=== PATIENT | male | born 1995 | race Caucasian/White ===

== ENCOUNTER 2019-10-23 17:11 | Emergency (ER) | payer OTHER, SELFPAY ==
[2019-10-23 17:25] VITALS: BP 125/66; PULSE 98; RESP 20; TEMP 36.7; O2SAT 100; BMI 36.3
--- NOTE | 2019-10-23 17:29 | DI.RAD.S_ITS ---
PROCEDURE: XR CHEST 2V INDICATIONS: cough x1 month TECHNIQUE: 2 views of the chest were acquired. COMPARISON: None. FINDINGS: Surgical changes and devices: None. Lungs and pleura: Lungs are clear. No pleural effusions or pneumothorax. Mediastinum: Mediastinal contours are normal. Heart size is normal. Bones and chest wall: No suspicious bony abnormalities. Soft tissues appear unremarkable. IMPRESSION: No acute cardiopulmonary disease. Dictated by: Radha Cid M.D. on 10/23/2019 at 17:44 Approved by: Radha Cid M.D. on 10/23/2019 at 17:45
--- NOTE | 2019-10-23 19:26 | ED_ITS ---
HPI - URI/Sore Throat <JULIO Latham - Last Filed: 10/23/19 20:37> General Chief Complaint: Upper Respiratory Symptoms Stated Complaint: Thinks Bronchitis/Cough Time Seen by Provider: 10/23/19 18:44 Source: patient Mode of arrival: Ambulatory History of Present Illness HPI Narrative: 23-year-old male who is a current smoker, presents to the emergency department complaining of a cough for the past month. He states he originally started with an upper respiratory tract infection which slowly resolved but he continued to have a cough. Patient states over the past few days his cough has been becoming increasingly worse. He also reports increasing fatigue, increasing sputum production, and chills. Patient states he often coughs so hard that he vomits. He denies any abdominal pain, diarrhea, dizzines s, chest pain, exposure to known cases of COVID-19 or any other symptoms. Related Data Previous Rx's Medication Instructions Recorded albuterol sulfate [ProAir HFA] 2 puff INHALATION Q4-6H PRN #8.5 10/23/19 gram azithromycin See Rx Instructions .ROUTE 10/23/19 .COMPLEX #6 tab Allergies Allergy/AdvReac Type Severity Reaction Status Date / Time No Known Drug Allergies Allergy Verified 10/23/19 17:29 Review of Systems <JULIO Latham - Last Filed: 10/23/19 20:37> Review of Systems Narrative: REVIEW OF SYSTEMS: GENERAL: Reports chills, see HPI. HENT: No head trauma or hearing loss. EYES: No loss of vision, double vision, eye pain, irritation or discharge. CARDIOVASCULAR: No chest pain or syncope. RESPIRATORY: No shortness of breath. Complains of cough, see HPI. GASTROINTESTINAL: No nausea, vomiting, diarrhea, or constipation. MUSCULOSKELETAL: No weakness or injury. INTEGUMENTARY: No rash, lesions, or pruritus. NEURO: No memory loss, or confusion. Patient History <JULIO Latham - Last Filed: 10/23/19 20:37> Medical History No significant medical problems (Acute) Social History Smoking Status: Current every day smoker Smoking Status: Current every day smoker tobacco type: cigarettes alcohol intake frequency: holidays/special occasions only Substance Use Type: does not use Exam <JULIO Latham - Last Filed: 10/23/19 20:37> Initial Vital Signs Initial Vital Signs: Vital Signs Temperature 98.1 F 10/23/19 17:25 Pulse Rate 98 H 10/23/19 17:25 Respiratory Rate 20 10/23/19 17:25 Blood Pressure 125/66 10/23/19 17:25 Pulse Oximetry 100 10/23/19 17:25 PHYSICAL EXAMINATION: GENERAL: Well groomed, alert, and cooperative. Answers questions promptly and appropriately. Vital signs noted. HENT: Normocephalic, atraumatic. Ear canals patent. TMs intact without mucus or erythema. Oropharynx with slight erythema, Tonsils are not present. EYES: Conjunctiva pink, sclera white, no periorbital swelling. No discharge. CHEST: Normal to inspection and without deformities. CARDIOVASCULAR: S1 and S2 sounds normal. Regular rate and rhythm, no murmurs, clicks, or bruits. RESPIRATORY: Normal respiratory rate, trachea midline, airway patent. No stridor, nasal flaring or accessory muscle use. Able to speak in full sentences. Lungs with diffuse expiratory wheezes and scattered rhonchi, productive cough noted throughout examination. MUSCULOSKELETAL: Normal gait and coordination. Equal tone and mass bilaterally. EXTREMITIES: Moves all extremities. SKIN: Warm, dry, soft, appropriate color for ethnicity. No lesions, rashes, or wounds to visualized areas. NEURO: Alert and Oriented X 3. Good coordination. No ataxia or cognitive issues. PSYCH: Appropriate affect and mood. <Eitan Sow DO - Last Filed: 10/23/19 23:21> Initial Vital Signs Initial Vital Signs: Vital Signs Temperature 98.1 F 10/23/19 17:25 Pulse Rate 98 H 10/23/19 17:25 Respiratory Rate 20 10/23/19 17:25 Blood Pressure 125/66 10/23/19 17:25 Pulse Oximetry 100 10/23/19 17:25 Course <JULIO Latham - Last Filed: 10/23/19 20:37> Orders Ordered: ED Orders 10/23/19 17:29 Chest [XR chest 2V] Stat Vital Signs Vital signs: Vital Signs - 8 hr 10/23/19 17:25 10/23/19 19:33 Temperature 98.1 F 98.7 F Pulse Rate 98 H 100 H Respiratory Rate 20 20 Blood Pressure 125/66 133/81 Pulse Oximetry 100 98 <Eitan SowDO - Last Filed: 10/23/19 23:21> Orders Ordered: ED Orders 10/23/19 17:29 Chest [XR chest 2V] Stat Vital Signs Vital signs: Vital Signs - 8 hr 10/23/19 17:25 10/23/19 19:33 Temperature 98.1 F 98.7 F Pulse Rate 98 H 100 H Respiratory Rate 20 20 Blood Pressure 125/66 133/81 Pulse Oximetry 100 98 MDM - URI/Sore Throat <NicoleJULIO Romano - Last Filed: 10/23/19 20:37> Medical Records Attestation: I reviewed the patient's medical records. Lab Data Attestation: I reviewed the patient's lab results. Imaging Data Chest x-ray: Radiologist's Impression: [address] [address] XRay Report Signed Patient: Rajat Dupree [facility]#: [id number] : 1995Acct:[id number] Age/Sex: 23 / MDate of Service: 10/23/19 Loc: ED Accession Number: [id number] Procedure: XR chest 2V Ordering Provider: Cecilia Kent MD PROCEDURE: XR CHEST 2V INDICATIONS: cough x1 month TECHNIQUE: 2 views of the chest were acquired. COMPARISON: None. FINDINGS: Surgical changes and devices: None. Lungs and pleura: Lungs are clear. No pleural effusions or pneumothorax. Mediastinum: Mediastinal contours are normal. Heart size is normal. Bones and chest wall: No suspicious bony abnormalities. Soft tissues appear unremarkable. IMPRESSION: No acute cardiopulmonary disease. Dictated by: Radha Cid M.D. on 10/23/2019 at 17:44 Approved by: Radha Cid M.D. on 10/23/2019 at 17:45 [facility] Narrative Medical decision making narrative: 23-year-old smoker presented to the emergency department for prolonged cough for the past month which has increased over the past few days. Patient was wheezing on examination, chest x-ray negative for any signs of significant pneumonia. Due to prolonged duration of symptoms, rhonchi, and wheezes, I suspect patient has both a component of reactive airway disease/COPD and bronchitis verses atypical pneumonia. Increased suspicion for bacterial bronchitis versus viral due to 2nd sickening syndrome and symptoms have been ongoing for over a month. Patient was treated with azithromycin due to anti-inflammatory component that is often used in COPD exacerbations. He was also given an albuterol inhaler and was taught how to use a spacer. Patient was given strict follow-up instructions in the next 1-2 weeks for further evaluation with his primary care provider if symptoms continue. Return precautions given for severe symptoms such as shortness of breath or chest pain. I do not feel like patient meets criteria for COVID-19 testing due to lack of fevers, however patient was instructed to being contact with his primary care provider if other symptoms were to develop. Given in the community circumstances he was encouraged to stay home in self isolation 3 days after all symptoms have resolved. Discharge Plan Departure Patient Disposition: Home Clinical Impression: Bronchitis, Atypical pneumonia Reactive airway disease Qualifiers: Asthma severity: mild Asthma persistence: intermittent Asthma complication type: uncomplicated Qualified Code(s): J45.20 - Mild intermittent asthma, uncomplicated Discharge Date/Time: 10/23/19 19:33 Instructions: DI for Chronic Obstructive Pulmonary Disease, DI for Acute Bronchitis, DI for Atypical Pneumonia Activity Restrictions/Additional Instructions: Thank you for entrusting me with your care today. As discussed, your chest x-ray and influenza swab is negative. Due to your prolonged duration of symptoms in your lung exam, and concern for bacterial infection such as atypical pneumonia or bacterial bronchitis. I prescribed you an antibiotic, please take this as directed. You also have a reactive airway component which is causing wheezing and coughing, this is most likely due to smoking. I have given you inhaler, please use 1-2 puffs every 4-6 hours as needed for coughing spasms and wheezing. Return emergency department for any new or worsening symptoms such as severe shortness of breath, chest pain, syncope, or any other concerns. Follow up with her primary care provider in 1-2 weeks for further evaluation. Prescriptions: New albuterol sulfate [ProAir HFA] 90 mcg/actuation HFA aerosol inhaler 2 puff INHALATION Q4-6H PRN (Reason: shortness of breath or wheezing) Qty: 8.5 RF: 0 azithromycin 250 mg tablet See Rx Instructions .ROUTE .COMPLEX Qty: 6 RF: 0 Referrals: Blake Swift [Primary Care Provider] - Stand Alone Forms: Work Release Note <Eitan Sow DO - Last Filed: 10/23/19 23:21> Sign Out Provider Sign Out Attestation: Dr Sow Co-Sign Statement: I was available for consultation during this patient's emergency department visit. This chart is signed by myself for administrative purposes only. I did not have direct contact with this patient during this visit. They were seen independently by the APC.
[2019-10-23 19:33] VITALS: BP 133/81; PULSE 100; RESP 20; TEMP 37.1; O2SAT 98
== END 2019-10-23 19:33 | disposition home or self-care (01) ==
PROVIDERS: Emergency Provider Nurse Practitioner; PCP Anesthesiology Pain Medicine
DX: J40 Bronchitis, not specified as acute or chronic (principal); J18.9 Pneumonia, unspecified organism; J45.20 Mild intermittent asthma, uncomplicated
CPT/HCPCS: 71046; 99283